=== PATIENT | female | born 1965 | race Caucasian/White ===

== ENCOUNTER 2021-01-31 16:30 | Inpatient (IN) | payer OTHER ==
[~2021-01-31] VITALS: Ht 152.4 cm; Wt 87.6 kg
[2021-01-31 20:51] LABS: BILIRUBIN NEGATIVE (NEGATIVE); BLOOD 1+ Ery/uL (NEGATIVE); CLARITY CLEAR (CLEAR); COLOR YELLOW (YELLOW); GLUCOSE (U) NORMAL (NORMAL); LEUKOCYTES 3+ Leu/uL (NEGATIVE); NITRITE POSITIVE (NEGATIVE); PROTEIN TRACE (LOW) mg/dL (NEGATIVE)
[2021-01-31 20:52] LABS: BASOPHIL 0.3 % (0-2); EOSINOPHIL 0.6 % (0-5); HCT 39.2 % (37.0-47.0); HGB 12.3 g/dl (12.5-16.0); LYMPHOCYTE 19.4 % (15-48); MCH 28.9 pg (25.0-31.0); MCHC 31.4 g/dL (32.0-36.0); MPV 12.8 fL (6.0-9.5); NEUTROPHIL 70.3 % (41-80); NRBC 0; PLT 446 K/uL (150-400); RBC 4.26 M/uL (4.20-5.40); RDW 12.9 % (11.5-14.0)
[2021-01-31 20:58] LABS: BACTERIA 3+; URINARY WBC TNTC
[2021-01-31 20:59] LABS: RENAL EPITHELIAL CELLS RARE
[2021-01-31 21:01] LABS: WBC 20.4 K/uL (4.0-10.5)
[2021-01-31 21:21] LABS: ALBUMIN 3.4 g/dL (3.4-5.0); BILIRUBIN - TOTAL 0.4 mg/dL (0.2-1.0); BUN/CREAT RATIO (CALC) 15.1 RATIO; CREATININE 0.73 mg/dL (0.51-0.95); GLOBULIN (CALCULATION) 5.6 g/dL; POTASSIUM 3.4 mmol/L (3.5-5.1)
[2021-01-31 21:27] LABS: LACTIC ACID 3.8 mmol/L (0.4-1.9)
[2021-02-01 07:33] LABS: BASOPHIL 0.3 % (0-2); EOSINOPHIL 0.7 % (0-5); HCT 31.1 % (37.0-47.0); HGB 9.9 g/dl (12.5-16.0); LYMPHOCYTE 10.8 % (15-48); MCH 29.4 pg (25.0-31.0); MCHC 31.8 g/dL (32.0-36.0); MCV 92.3 fL (78.0-100.0); MONOCYTE 10.5 % (0-12); MPV 12.5 fL (6.0-9.5); NEUTROPHIL 77.2 % (41-80); NRBC 0; PLT 314 K/uL (150-400); RBC 3.37 M/uL (4.20-5.40); WBC 14.8 K/uL (4.0-10.5)
[2021-02-01 08:03] LABS: ALBUMIN 2.5 g/dL (3.4-5.0); BILIRUBIN - TOTAL 0.3 mg/dL (0.2-1.0); BUN/CREAT RATIO (CALC) 10.7 RATIO; C-REACTIVE PROTEIN 14.3 mg/dL (<=0.90); CREATININE 0.84 mg/dL (0.51-0.95); GLOBULIN (CALCULATION) 3.6 g/dL; POTASSIUM 4.2 mmol/L (3.5-5.1)
[2021-02-01 08:04] LABS: TOTAL PROTEIN 6.1 g/dL (6.4-8.2)
[2021-02-02 08:39] LABS: BUN/CREAT RATIO (CALC) 7.8 RATIO; CREATININE 0.77 mg/dL (0.51-0.95); POTASSIUM 3.9 mmol/L (3.5-5.1)
[2021-02-02 08:53] LABS: BASOPHIL 0.4 % (0-2); EOSINOPHIL 2.4 % (0-5); HCT 31.8 % (37.0-47.0); HGB 9.8 g/dl (12.5-16.0); LYMPHOCYTE 18.9 % (15-48); MCH 29.1 pg (25.0-31.0); MCHC 30.8 g/dL (32.0-36.0); MCV 94.4 fL (78.0-100.0); MONOCYTE 8.1 % (0-12); MPV 13.3 fL (6.0-9.5); NEUTROPHIL 69.8 % (41-80); NRBC 0; PLT 323 K/uL (150-400); RBC 3.37 M/uL (4.20-5.40); RDW 13.2 % (11.5-14.0); WBC 10.6 K/uL (4.0-10.5)
[2021-02-03] MEDS ORDERED: METRONIDAZOLE500 MG PO (15:25)
[2021-02-03] MEDS ORDERED: LEVAQUIN500 MG PO (15:25)
== END 2021-02-03 15:49 | disposition home or self-care (01) | DRG 392 ==
LOC: FER 16:30 → FMS 23:06 → FOFB 23:06 → FMS 23:07
PROVIDERS: Internal Medicine; Nurse Practitioner; Nurse Practitioner Family; ADMIT Internal Medicine
DX: K57.20 Diverticulitis of large intestine with perforation and abscess without bleeding (principal); N30.01 Acute cystitis with hematuria; Z20.822 Contact with and (suspected) exposure to COVID-19; M85.80 Other specified disorders of bone density and structure, unspecified site; B96.20 Unspecified Escherichia coli [E. coli] as the cause of diseases classified elsewhere; Z98.890 Other specified postprocedural states; Z83.3 Family history of diabetes mellitus; Z82.49 Family history of ischemic heart disease and other diseases of the circulatory system; Z82.3 Family history of stroke; Z79.899 Other long term (current) drug therapy
CPT/HCPCS: 36415; 71045; 80048; 80053; 81001; 82150; 83605; 83690; 84145; 85025; 86140; 87040; 87076; 87088; 87186; 93005; 94010; C9113; J1956; J2405; J2543; J7030; Q9967; U0002

== ENCOUNTER → 2021-03-31 | Day surgery (SDC) | payer OTHER ==
[~2021-03-31] VITALS: Ht 152.4 cm; Wt 86.2 kg
[~2021-03-31] MED LIST: CALCIUM 500 +1 EACH PO; LEVAQUIN500 MG PO; METRONIDAZOLE500 MG PO
== END | disposition home or self-care (01) ==
LOC: FAS 10:49
DX: K57.30 Diverticulosis of large intestine without perforation or abscess without bleeding (principal); K58.9 Irritable bowel syndrome, unspecified
CPT/HCPCS: J1610; J2704; J7120

== ENCOUNTER 2021-12-14 15:30 | Inpatient (IN) | payer OTHER ==
[~2021-12-14] VITALS: Ht 152.4 cm; Wt 88.6 kg
[2021-12-14 16:23] LABS: BASOPHIL 0.4 % (0-2); EOSINOPHIL 1.1 % (0-5); HCT 38.4 % (37.0-47.0); HGB 12.3 g/dl (12.5-16.0); LYMPHOCYTE 21.2 % (15-48); MCH 28.9 pg (25.0-31.0); MCV 90.4 fL (78.0-100.0); MONOCYTE 8.9 % (0-12); MPV 12.9 fL (6.0-9.5); NRBC 0; PLT 353 K/uL (150-400); RBC 4.25 M/uL (4.20-5.40); RDW 13.6 % (11.5-14.0); WBC 14.1 K/uL (4.0-10.5)
[2021-12-14 16:31] LABS: BILIRUBIN NEGATIVE (NEGATIVE); BLOOD 1+ Ery/uL (NEGATIVE); COLOR YELLOW (YELLOW); GLUCOSE (U) NORMAL (NORMAL); LEUKOCYTES 3+ Leu/uL (NEGATIVE); NITRITE NEGATIVE (NEGATIVE); PROTEIN NEGATIVE (NEGATIVE); UROBILINOGEN 0.2 mg/dL (0.2-1.0)
[2021-12-14 16:35] LABS: CLARITY HAZY (CLEAR)
[2021-12-14 16:41] LABS: BACTERIA 1+; URINARY RBC RARE; URINARY WBC 20-50
[2021-12-14 16:58] LABS: ALBUMIN 3.5 g/dL (3.4-5.0); BILIRUBIN - TOTAL 0.3 mg/dL (0.2-1.0); BUN/CREAT RATIO (CALC) 14.9 RATIO; CREATININE 0.74 mg/dL (0.51-0.95); GLOBULIN (CALCULATION) 4.6 g/dL; POTASSIUM 3.8 mmol/L (3.5-5.1); TOTAL PROTEIN 8.1 g/dL (6.4-8.2)
[2021-12-14 19:11] LABS: LACTIC ACID 0.6 mmol/L (0.4-1.9)
[2021-12-14] MEDS ORDERED: COLACE100 MG PO (23:40)
[2021-12-14] MEDS ORDERED: MIRALAX17 GM PO (23:40)
[2021-12-14] MEDS ORDERED: PROBIOTIC 2 BI1 EACH PO (23:41)
[2021-12-15 07:37] LABS: BASOPHIL 0.6 % (0-2); EOSINOPHIL 1.8 % (0-5); HCT 36.5 % (37.0-47.0); HGB 11.7 g/dl (12.5-16.0); LYMPHOCYTE 22.1 % (15-48); MCH 29.4 pg (25.0-31.0); MCHC 32.1 g/dL (32.0-36.0); MCV 91.7 fL (78.0-100.0); MONOCYTE 9.8 % (0-12); MPV 13.3 fL (6.0-9.5); NEUTROPHIL 65.3 % (41-80); NRBC 0; PLT 328 K/uL (150-400); RBC 3.98 M/uL (4.20-5.40); RDW 13.5 % (11.5-14.0); WBC 11.4 K/uL (4.0-10.5)
[2021-12-15 08:01] LABS: INR 1.03 (0.9-1.2); PROTHROMBIN TIME 13.2 SECONDS (11.9-13.9); PTT 30.3 SECONDS (24.9-34.6)
[2021-12-15 08:24] LABS: ALBUMIN 3.2 g/dL (3.4-5.0); BILIRUBIN - TOTAL 0.3 mg/dL (0.2-1.0); BUN/CREAT RATIO (CALC) 11.9 RATIO; CREATININE 0.67 mg/dL (0.51-0.95); FT4 (FREE T4) 1.1 ng/dL (0.76-1.46); GLOBULIN (CALCULATION) 4.3 g/dL; POTASSIUM 3.9 mmol/L (3.5-5.1); TOTAL PROTEIN 7.5 g/dL (6.4-8.2)
[2021-12-16] MEDS ORDERED: AMOX TR-K CLV1 EAC4 PO (13:48)
== END 2021-12-16 14:36 | disposition home or self-care (01) | DRG 394 ==
LOC: FER 15:30 → FMS 21:40
PROVIDERS: Nurse Practitioner; Nurse Practitioner Family; ADMIT Internal Medicine
DX: N82.3 Fistula of vagina to large intestine (principal); K57.32 Diverticulitis of large intestine without perforation or abscess without bleeding; M85.80 Other specified disorders of bone density and structure, unspecified site; R32 Unspecified urinary incontinence; K59.00 Constipation, unspecified; K62.89 Other specified diseases of anus and rectum; Z98.890 Other specified postprocedural states; Z82.49 Family history of ischemic heart disease and other diseases of the circulatory system; Z83.3 Family history of diabetes mellitus; Z83.79 Family history of other diseases of the digestive system
CPT/HCPCS: 36415; 72192; 74270; 80053; 81001; 82150; 83605; 83690; 83735; 84145; 84439; 84443; 85025; 85610; 85730; 87088; 93005; 94010; C9113; J2543; J7030; Q9967

== ENCOUNTER 2022-01-15 07:28 | Day surgery (SDCO) | payer OTHER ==
[~2022-01-15] VITALS: Ht 152.4 cm; Wt 90.0 kg
[~2022-01-15 07:28] MED LIST changes: +AMOX TR-K CLV1 EAC4 PO; +COLACE100 MG PO; +MIRALAX17 GM PO; +PROBIOTIC 2 BI1 EACH PO
[2022-01-15 08:56] LABS: BILIRUBIN NEGATIVE (NEGATIVE); BLOOD 2+ Ery/uL (NEGATIVE); COLOR YELLOW (YELLOW); GLUCOSE (U) NORMAL (NORMAL); LEUKOCYTES 3+ Leu/uL (NEGATIVE); NITRITE NEGATIVE (NEGATIVE); PROTEIN 1+ mg/dL (NEGATIVE); UROBILINOGEN 0.2 mg/dL (0.2-1.0)
[2022-01-15 09:14] LABS: CLARITY HAZY (CLEAR)
[2022-01-15 09:15] LABS: BACTERIA 2+; URINARY WBC TNTC
[2022-01-15 09:21] LABS: BASOPHIL 0.5 % (0-2); EOSINOPHIL 0.8 % (0-5); HGB 12.6 g/dl (12.5-16.0); LYMPHOCYTE 15.8 % (15-48); MCH 28.9 pg (25.0-31.0); MCHC 31.5 g/dL (32.0-36.0); MCV 91.7 fL (78.0-100.0); MONOCYTE 7.5 % (0-12); MPV 13.3 fL (6.0-9.5); NEUTROPHIL 74.9 % (41-80); NRBC 0; PLT 318 K/uL (150-400); RBC 4.36 M/uL (4.20-5.40); RDW 14.4 % (11.5-14.0); WBC 15.3 K/uL (4.0-10.5)
[2022-01-15 09:57] LABS: LACTIC ACID 1.7 mmol/L (0.4-1.9)
[2022-01-15 09:58] LABS: ALBUMIN 3.4 g/dL (3.4-5.0); ALKALINE PHOSHATASE 144 U/L (46-116); ALT 23 U/L (14-59); AST 19 U/L (15-37); BILIRUBIN - TOTAL 0.4 mg/dL (0.2-1.0); BUN 6 mg/dL (7-18); BUN/CREAT RATIO (CALC) 7.5 RATIO; CHLORIDE 101 mmol/L (98-107); CO2 (BICARBONATE) 25 mmol/L (21-32); GLUCOSE 126 mg/dL (74-106); LIPASE 78 U/L (73-393); POTASSIUM 3.5 mmol/L (3.5-5.1); TOTAL PROTEIN 8.4 g/dL (6.4-8.2)
[2022-01-15] MEDS ORDERED: METAMUCIL PACK3.4 GM PO (13:59)
[2022-01-16 07:03] LABS: BASOPHIL 0.4 % (0-2); EOSINOPHIL 1.7 % (0-5); HCT 34.6 % (37.0-47.0); HGB 10.7 g/dl (12.5-16.0); LYMPHOCYTE 23.2 % (15-48); MCH 28.5 pg (25.0-31.0); MCHC 30.9 g/dL (32.0-36.0); MONOCYTE 10.5 % (0-12); MPV 12.7 fL (6.0-9.5); NEUTROPHIL 63.8 % (41-80); NRBC 0; PLT 271 K/uL (150-400); RBC 3.76 M/uL (4.20-5.40); RDW 14.5 % (11.5-14.0); WBC 10.3 K/uL (4.0-10.5)
[2022-01-16 07:42] LABS: BUN/CREAT RATIO (CALC) 8.1 RATIO; C-REACTIVE PROTEIN 11.9 mg/dL (<=0.90); CREATININE 0.74 mg/dL (0.51-0.95); MAGNESIUM 2.2 mg/dL (1.8-2.4); POTASSIUM 3.9 mmol/L (3.5-5.1)
--- NOTE | 2022-01-16 16:05 | NUR ---
01/16/22 Ms. Richey lives at home with her spouse. She is not employed. Ms. Richey reports that the family are able to meet their financial obligations. - Ms. Richey will require IV antibiotics at discharge. HH vs Outpatient were discussed. She chose outpatient IV antibiotic treatment.
--- NOTE | 2022-01-16 17:49 | NUR ---
Order received for PICC Line. Risks and benefits explained for PICC line placement. Verbalized understanding. Consent obtained. Time Out completed with Irma Amador RN. Patient's left upper arm baslic vein visualized using the [employer]. The site was marked with a surgical marker. Arm circumference and initial PICC length measured. The Sherlock device was placed on the patient's chest in the appropriate position. The patient was draped and prepped in sterile fashion. The area was then numbed with 1 cc of 1 % Lidocaine. Time was given for Lidocaine to take effect. A 21 gauge needle was used to access the vein guided by the [employer] ultrasound. Blood return noted. The guide wire was advanced through the needle into the vein. The needle was removed and the tourniquet released. The sheath introducer was inserted over the guide wire into the vein. The wire was removed and the cap was placed on the sheath introducer. The 4 FR single lumen Power PICC was trimmed at 46 cm then guided into the position using the Sherlock device. The sheath introducer was removed. Insertion site cleaned, stat lock and sterile dressing applied. Awaiting cxr reults. Report to Irma Amador RN
[2022-01-17] MEDS ORDERED: INVANZ 1GM1 GM/VIAL IV (09:42)
== END 2022-01-17 12:15 | disposition home or self-care (01) ==
LOC: FER 07:28 → FMS 11:35
PROVIDERS: Emergency Medicine; ADMIT Internal Medicine
DX: N82.3 Fistula of vagina to large intestine (principal); K63.2 Fistula of intestine; K57.32 Diverticulitis of large intestine without perforation or abscess without bleeding; K59.00 Constipation, unspecified; N39.0 Urinary tract infection, site not specified; Z95.828 Presence of other vascular implants and grafts
CPT/HCPCS: 36415; 71045; 80048; 80053; 81001; 83605; 83690; 83735; 84145; 84484; 85025; 86140; 87088; 94010; 94760; 94762; G0378; J0696; J1335; J1642; J2543; J7030; Q9967